=== PATIENT | female | born 1955 | race Caucasian/White ===

== ENCOUNTER 2017-06-02 18:39 | Emergency (ER) | payer MEDICAID ==
--- NOTE | 2017-06-02 20:00 | EDPHY ---
H & P Time Seen by Provider: 06/02/17 19:31 HPI/ROS: CHIEF COMPLAINT: Left shoulder injury HISTORY OF PRESENT ILLNESS: The patient is a 60-year-old female who presents emergency department left shoulder injury. Patient was getting with a partner. She was leaning forward with her hands and feet on the ground. Her partner shift his weight and caused her to have strain on her left shoulder. She now has severe left shoulder pain with movement. It is moderate at rest. She has no numbness or tingling. No other injury. No previous shoulder surgery REVIEW OF SYSTEMS: My complete review of systems is negative except as mentioned in the HPI. Past Medical/Surgical History: Negative Past surgical history: Tonsillectomy Social history: Patient does not smoke Smoking Status: Never smoked Physical Exam: Vitals noted General Appearance: Alert and no distress. Head: Pupils equal. Normal. Respiratory: No respiratory distress. Cardiac: regular rate and rhythm. Extremities: Patient's left arm appears normal. There is no swelling. She is neurovascular intact distally. She has mild discomfort with movement of her shoulder. There is no gross shoulder instability. No AC tenderness. No deltoid tenderness. She has mild tenderness palpation on the medial aspect of her left scapula. Skin: No rashes or lesions. Neuro: Alert. Normal mood and affect. Constitutional: Initial Vital Signs Temperature (C) 36.9 C 06/02/17 19:10 Heart Rate 71 06/02/17 19:10 Respiratory Rate 16 06/02/17 19:10 Blood Pressure 143/49 H 06/02/17 19:10 O2 Sat (%) 93 06/02/17 19:10 O2 Delivery Mode Room Air Allergies/Adverse Reactions: epinephrine Allergy (Verified 06/02/17 19:09) Home Medications: Medication Instructions Recorded NK [No Known Home Meds] 06/02/17 Medical Decision Making - Diagnostics Imaging Results: Imaging Impressions Shoulder X-Ray 06/02/17 19:13 Impression: Degenerative features with some evidence of impingement anatomy, but no acute osseous abnormality. If there is further clinical concern regarding the patient's symptoms, consider MR imaging. Findings were discussed with Radha Watson M.D. at 19:46, on 06/02/2017. ED Course/Re-evaluation: In the emergency department I discussed possible etiologies with the patient. I answered all her questions. An x-ray of left shoulder was ordered. Patient was given ibuprofen. Left shoulder x-ray: Please refer the dictated report by Dr. Rose. I discussed the case with Dr. Rose. No acute disease noted. Discussed the results with the patient. I explained the need for close follow- up with Orthopedics. She is given a shoulder sling. Differential Diagnosis: My differential includes but is not limited to fracture, dislocation, rotator cuff injury, impingement Departure - Departure Disposition: Home, Routine, Self-Care Clinical Impression: Shoulder injury Qualifiers: Encounter type: initial encounter Laterality: left Qualified Code(s): S49.92XA - Unspecified injury of left shoulder and upper arm, initial encounter Condition: Good Instructions: Shoulder Pain (ED) Additional Instructions: Your x-ray was unremarkable. Your shoulder has normal alignment. You need close follow-up with Orthopedics. Wear sling for comfort. Referrals: LORENZO CHANDLER [Other] - As per Instructions Benjamin Nichole MD [Medical Doctor] - 3-4 days, if not improved
[2017-06-02] MEDS ORDERED: IBUPROFEN 600 MG TAB PO ONE (20:05)
[2017-06-02 20:13] VITALS: BP 131/74
== END 2017-06-02 20:12 | disposition home or self-care (01) ==
DX: S49.92XA Unspecified injury of left shoulder and upper arm, initial encounter (principal); X58.XXXA Exposure to other specified factors, initial encounter
CPT/HCPCS: A4565